=== PATIENT | male | born 1945 | race Caucasian/White ===

== ENCOUNTER 2016-11-18 19:05 | Emergency (ER) | payer OTHER ==
[~2016-11-18] VITALS: Ht 182.9 cm; Wt 81.6 kg
[~2016-11-18 19:05] MED LIST: COLACE100 M1 PO; COUMADIN5 M2 PO; HYDROCODON-ACE1 EAC1 PO; HYDROCODON-ACE1 EAC3 PO; LISINOPRIL40 M1 PO; MIRALAX17 G1 PO; ZOHYDRO ER20 M1 PO
[2016-11-18 20:00] LABS: BASOPHIL % 0.5 % (0.0-2.0); GRANULOCYTE % 62.3 % (42.2-75.2); MEAN CORPUSCULAR HGB 32.7 PG (27.0-31.0); MEAN PLATELET VOLUME 7.3 FL (7.4-10.4); PLATELET COUNT 249 /CUMM (130-400); RED BLOOD CELL CT 5.18 /CUMM (4.70-6.10); WHITE BLOOD CELL COUNT 11.6 /CUMM (4.8-10.8)
[2016-11-18 20:01] LABS: ABSOLUTE BASOPHIL COUNT 0.1 /CUMM (0.0-0.2); ABSOLUTE EOSINOPHIL COUNT 1.1 /CUMM (0.0-0.7); ABSOLUTE GRANULOCYTE CT 7.2 /CUMM (1.4-6.5); ABSOLUTE LYMPH COUNT 2.2 /CUMM (1.2-3.4); EOSINOPHIL % 9.6 % (0-5); HEMATOCRIT 51.3 % (42-52); MEAN CORPUSCULAR VOLUME 99.1 FL (80.0-94.0)
[2016-11-18] MEDS ORDERED: IRON325 M3 PO (21:31)
--- NOTE | 2016-11-18 21:33 | ED DYSPNEA/ASTHMA COMPLAINT ---
History of Present Illness General Chief Complaint: Dyspnea (COPD, CHF, Other) Stated Complaint: SOB Source: patient Exam Limitations: no limitations Vital Signs & Intake/Output Vital Signs & Intake/Output Vital Signs Date Time Temp Pulse Resp B/P B/P Pulse O2 O2 Flow FiO2 Mean Ox Delivery Rate 11/18 2254 98.0 88 18 166/89 95 Room Air 11/18 2243 96 11/18 2202 96 11/18 2139 Room Air 11/186 97.8 89 20 180/92 94 Room Air 11/18 1912 99.1 103 32 174/93 92 Room Air Allergies Coded Allergies: NSAIDS (Non-Steroidal Anti-Inflamma (NOSEBLEEDS 11/18/16) aspirin (NOSEBLEEDS 12/06/15) Reconcile Medications Albuterol Sulfate (Ventolin Hfa) 90 MCG HFA.AER.AD 2 PUF INH Q4-6 PRN PRN WHEEZING Benzonatate (Tessalon Perle) 100 MG CAPSULE 1 CAP PO TID PRN COUGH Ferrous Sulfate (IRON) 325 MG (65 MG IRON) TABLET 1 TAB PO DAILY SUPPLEMENT ( Reported) Lisinopril 40 MG TABLET 1 TAB PO DAILY BP (Reported) Prednisone 10 MG TABLET 1 TAB PO AD INFLAMMATION DAY1/DAY2 FOUR TABS DAY3/DAY4 THREE TABS DAY5/DAY6 TWO TABS DAY7 Triage Note: C/O SOB, CHEST CONGESTION AND COUGH X 10 DAYS. WORSE WHEN LAYING DOWN. DENIES CHEST PAIN. Triage Nurses Notes Reviewed? yes Onset: Gradual Duration: getting worse Timing: remote history Severity: severe Activities at Onset: activity Prior Episodes/Possible Cause: frequent episodes HPI: Patient is a 70-year-old male with a past medical history of hypertension who presents to emergency room with concerns of 12 month history of intermittent wheezing and shortness of breath and dyspnea on exertion. Patient states that in January of last year he was having preoperative test to have a right hip replacement where the wheezing was noted at that time however patient has not followed up with a primary care doctor Patient states that in the last 10 days the wheezing shortness of breath and white cough has worsened. Patient denies any fever chills chest pain arm pain jaw pain nausea vomiting hemoptysis leg swelling back pain. Patient denies any smoking history. PT HAS BEEN USING HIS AT HOME INHALER WITH MINIMAL RELIEF OF SYMPTOMS (NATHANIEL AUSTIN,TAMIA) Past History Travel History Traveled to [place] past 21 day No Medical History Any Pertinent Medical History? see below for history Neurological: NONE EENT: NONE Cardiovascular: hypertension Respiratory: bronchitis Gastrointestinal: NONE Hepatic: NONE Renal: NONE Musculoskeletal: NONE Psychiatric: NONE Endocrine: NONE Blood Disorders: NONE Cancer(s): NONE HOUSECLEANER/Reproductive: NONE History of MRSA: No History of VRE: No History of CDIFF: No Pneumonia Vaccine: 08/14/06 Surgical History Surgical History: hip replacement, See h and P Psychosocial History Who do you live with Patient/Self Services at Home None What is your primary language Surinamese Tobacco Use: Never used ETOH Use: occasional use Family History Family History, If Any: FATHER Relation not specified for: FHx: coronary artery disease Hx Contributory? No (TAMIA ABAD) Review of Systems Review of Systems Constitutional: Reports: no symptoms. EENTM: Reports: no symptoms. Respiratory: Reports: see HPI, cough, wheezing. Cardiovascular: Reports: no symptoms. GI: Reports: no symptoms. Genitourinary: Reports: no symptoms. Musculoskeletal: Reports: no symptoms. Skin: Reports: no symptoms. Neurological/Psychological: Reports: no symptoms. Hematologic/Endocrine: Reports: no symptoms. Immunologic/Allergic: Reports: no symptoms. All Other Systems: Reviewed and Negative (TAMIA ABAD) Physical Exam Physical Exam General Appearance: no apparent distress, alert Respiratory: chest non-tender, no respiratory distress, wheezing Comments: Well-developed well-nourished person in no acute distress HEENT: Normal EENT exam, extraocular motion intact, no nystagmus. Pupils equally round and reactive to light and accommodation. Nose is atraumatic. External auditory canal and Tympanic membranes clear. Pharynx normal. No swelling or edema. Neck: Supple, no lymphadenopathy, normal range of motion without pain or tenderness Back: Nontender, no CVA tenderness. Cardiovascular: Regular rate and rhythms no murmurs rubs or gallops, normal JVP Abdomen: Soft, nontender nondistended, no appreciable organomegaly. Normal bowel sounds. No ascites Extremity: No edema, no calf tenderness to palpation, normal and equal pulses. Neuro: Alert oriented x3, motor sensory normal, Skin: No appreciable rash on exposed skin, skin is warm and dry. Psych: Mood and affect is normal, memory and judgment is normal. Core Measures ACS in differential dx? No Severe Sepsis Present: No Septic Shock Present: No (TAMIA ABAD) Progress Differential Diagnosis: asthma, AMI, bronchitis, costochondritis, CHF, COPD, musculoskeletal pain, pericarditis, pulmonary embolism, pneumonia, pneumothorax, unstable angina Plan of Care: Orders Procedure Date/time Status TROPONIN LEVEL 11/19 1939 Complete COMPREHENSIVE METABOLIC PANEL 11/19 1939 Complete CBC WITHOUT DIFFERENTIAL 11/19 1939 Complete B-TYPE NATRIURETIC PEP (BNP) 11/19 1939 Complete EKG 11/18 1908 Active Laboratory Tests 11/18/161945: Anion Gap 15, Estimated GFR > 60, BUN/Creatinine Ratio 10.0, Glucose 95, Calcium 9.6, Total Bilirubin 0.7, AST 31, ALT 38, Alkaline Phosphatase 87, Troponin I < 0.01, Jqj-[id number]-Mdhiefmhrgt Pept 140 H, Total Protein 8.5 H, Albumin 4.9, Globulin 3.6, Albumin/Globulin Ratio 1.4, CBC w Diff NO MAN DIFF REQ, RBC 5.18, MCV 99.1 H, MCH 32.7 H, RDW 16.0 H, MPV 7.3 L, Gran % 62.3, Lymphocytes % 19.2 L, Monocytes % 8.4, Eosinophils % 9.6 H, Basophils % 0.5, Absolute Granulocytes 7.2 H, Absolute Lymphocytes 2.2, Absolute Monocytes 1.0 H, Absolute Eosinophils 1.1, Absolute Basophils 0.1, PUBS MCHC 33.0 Upon initial examination patient was resting comfortably at bedside. Patient does have auditory wheezing nebulizer treatment at IV site Medrol will be established. There is no concern of pulmonary embolism Patient denies any symptoms of chest pain Patient was given nebulizer treatments and had significant improvement of aeration and wheezing. Patient walked down the emergency room noted to be in no respiratory distress and oxygen saturation was 96% Patient was strongly advised to follow up with type copy examiner. Patient does state that he ran out of his inhaler yesterday. Upon discharge patient looks well no apparent distress and has concerns of COPD involvement (TAMIA ABAD) Diagnostic Imaging: Viewed by Me: Radiology Read. Radiology Impression: no acute abnormality Initial ED EKG: NSR, 95 BPM, Prior EKG: unchanged Comments: PATIENT: MIGDALIA MORENO PRESENT AGE: 70 PATIENT ACCOUNT NO: [id number] : 43 LOCATION: ER ORDERING PHYSICIAN: TAMIA AUSTIN SERVICE DATE: 11/18/16 EXAM TYPE: RAD - XRY-CHEST XRAY, PA AND LATERAL EXAMINATION: XR CHEST CLINICAL INFORMATION: Shortness of breath. Wheezing. COMPARISON: Chest x-ray 12/16/2015 TECHNIQUE: 2 views of the chest were obtained. FINDINGS: Lungs are clear. No pulmonary vascular congestion. No infiltrate or pleural effusion. The heart size is normal. The cardiac and mediastinal contours are normal. There are multilevel degenerative changes of dorsal spine. IMPRESSION: Unremarkable examination. DICTATED BY: CASSIDY PORRAS MD DATE/TIME DICTATED:11/18/162152 OPAL POLISHER:KRISHNA DATE/TIME TRANSCRIBED:11/18/162152 (NATHANIEL AUSTIN,TAMIA) Departure Departure Disposition: HOME OR SELF CARE Condition: Stable Clinical Impression Primary Impression: COPD (chronic obstructive pulmonary disease) Referrals: EVA ALVES MD (PCP/Family) DEBI YANG MD Additional Instructions: As discussed first thing tomorrow please follow up and establish type copy examiner Dr. Yang for further evaluation treatment. Begin the prescription of Ventolin for future shortness of breath and wheezing, begin the prescription of prednisone tomorrow as you have received this medication in the emergency room today, begin the prescription TESSALON PERLES FOR cough. If symptoms worsen or if YOU develop any new concerning symptom return to the emergency room. Departure Forms: Customer Survey General Discharge Information Prescriptions: Current Visit Scripts Albuterol Sulfate (Ventolin Hfa) 2 PUF INH Q4-6 PRN PRN WHEEZING #1 INHAL Ref 1 Prednisone 1 TAB PO AD #19 TAB DAY1/DAY2 FOUR TABS DAY3/DAY4 THREE TABS DAY5/DAY6 TWO TABS DAY7 Benzonatate (Tessalon Perle) 1 CAP PO TID PRN COUGH #21 CAP (TAMIA ABAD) PA/HEALTH AND WELLNESS SALES CONSULTANT Co-Sign Statement Statement: ED Attending supervision documentation- [X] I saw and evaluated the patient. I have also reviewed all the pertinent lab results and diagnostic results. I agree with the findings and the plan of care as documented in the PA's/HEALTH AND WELLNESS SALES CONSULTANT's documentation. [X] I have reviewed the ED Record and agree with the PA's/HEALTH AND WELLNESS SALES CONSULTANT's documentation. [] Additions or exceptions (if any) to the PAs/HEALTH AND WELLNESS SALES CONSULTANT's note and plan are summarized below: [] (TAMIR JUNG,ANTOINE Adan) Critical Care Note Critical Care Note Critical Care Time: non-applicable (NATHANIEL AUSTIN,TAMIA)
--- NOTE | 2016-11-18 21:58 | RADIOLOGY REPORT ---
EXAMINATION: XR CHEST CLINICAL INFORMATION: Shortness of breath. Wheezing. COMPARISON: Chest x-ray 12/16/2015 TECHNIQUE: 2 views of the chest were obtained. FINDINGS: Lungs are clear. No pulmonary vascular congestion. No infiltrate or pleural effusion. The heart size is normal. The cardiac and mediastinal contours are normal. There are multilevel degenerative changes of dorsal spine. IMPRESSION: Unremarkable examination.
[2016-11-18] MEDS ORDERED: VENTOLIN HFA18 GM INH (22:49)
[2016-11-18] MEDS ORDERED: PREDNISONE10 M2 PO (22:49)
[2016-11-18] MEDS ORDERED: TESSALON PERLE100 M1 PO (22:49)
[2016-11-18 22:54] VITALS: BP 166/89
== END 2016-11-18 22:55 ==
LOC: ERH 19:05
PROVIDERS: Emergency Medicine
DX: J44.9 Chronic obstructive pulmonary disease, unspecified (principal)
CPT/HCPCS: 1263; 93005; 93010; 96374; J2930